=== PATIENT | female | born 1975 | race Caucasian/White ===

== ENCOUNTER 2017-02-03 22:06 | Emergency (ER) | payer OTHER ==
[~2017-02-03] VITALS: Ht 170.2 cm; Wt 92.8 kg
[2017-02-03 23:08] LABS: BASOPHIL % 0.6 % (0-2); PLATELET COUNT 325 x10^3mcL (130-400)
[2017-02-03 23:11] LABS: RED CELL DISTRIBUTION WIDTH 15.9 % (11.5-14.5)
[2017-02-03 23:19] LABS: CALCIUM 8.9 mg/dL (8.5-10.1); CARBON DIOXIDE 29.3 mmol/L (21-32); CHLORIDE SERUM 102 mmol/L (98-107); CREATININE SERUM 0.8 mg/dL (0.6-1.0); GFR1 > 60 mL/min; GLUCOSE SERUM 92 mg/dL (74-106); POTASSIUM SERUM 3.3 mmol/L (3.5-5.1); SODIUM SERUM 140 mmol/L (136-145)
[2017-02-03 23:23] LABS: ALKALINE PHOSPHATASE 79 U/L (46-116); ALT/SGPT 7 U/L (14-59); AST/SGOT 10 U/L (15-37); BILIRUBIN TOTAL 0.4 mg/dL (0.20-1.00); CHOLESTEROL 161 mg/dL (<200); CHOLESTEROL/HDL RATIO 4.4; HDL CHOLESTEROL 37 mg/dL (40-60); TOTAL PROTEIN, SERUM 7.6 g/dL (6.4-8.2); TRIGLYCERIDES 93 mg/dL (<150)
[2017-02-04 02:28] VITALS: BP 115/64
== END 2017-02-04 02:10 | disposition home or self-care (01) ==
LOC: ED 22:06
PROVIDERS: Specialist
DX: R53.1 Weakness (principal); M54.9 Dorsalgia, unspecified
CPT/HCPCS: 83880; J1885; J7030; Q0092

== ENCOUNTER 2017-03-28 11:59 | Emergency (ER) | payer OTHER ==
[2017-03-28 17:28] VITALS: BP 125/76
== END 2017-03-28 17:28 | disposition home or self-care (01) ==
LOC: ED 11:59
DX: S16.1XXA Strain of muscle, fascia and tendon at neck level, initial encounter (principal); Z79.899 Other long term (current) drug therapy; Z88.8 Allergy status to other drugs, medicaments and biological substances; V43.92XA Unspecified car occupant injured in collision with other type car in traffic accident, initial encounter; Y93.89 Activity, other specified; Y99.8 Other external cause status; Y92.89 Other specified places as the place of occurrence of the external cause
CPT/HCPCS: J1885

== ENCOUNTER 2017-05-25 02:26 | Emergency (ER) | payer OTHER ==
[~2017-05-25] VITALS: Ht 170.2 cm; Wt 92.5 kg
[2017-05-25 04:04] LABS: BASOPHIL % 0.6 % (0-2); PLATELET COUNT 321 x10^3mcL (130-400)
[2017-05-25 04:05] LABS: RED CELL DISTRIBUTION WIDTH 16.3 % (11.5-14.5)
[2017-05-25 04:07] LABS: CALCIUM 8.7 mg/dL (8.5-10.1); CARBON DIOXIDE 31.3 mmol/L (21-32); CHLORIDE SERUM 104 mmol/L (98-107); CREATININE SERUM 0.7 mg/dL (0.6-1.0); GFR1 > 60 mL/min; GLUCOSE SERUM 107 mg/dL (74-106); POTASSIUM SERUM 3.7 mmol/L (3.5-5.1); SODIUM SERUM 140 mmol/L (136-145)
[2017-05-25 07:08] VITALS: BP 128/98
== END 2017-05-25 07:05 | disposition home or self-care (01) ==
LOC: ED 02:26
PROVIDERS: Emergency Medicine
DX: R13.10 Dysphagia, unspecified (principal); R06.00 Dyspnea, unspecified; M79.7 Fibromyalgia; K21.9 Gastro-esophageal reflux disease without esophagitis; Z90.49 Acquired absence of other specified parts of digestive tract
CPT/HCPCS: J7030; Q9967

== ENCOUNTER 2017-09-06 11:12 | Emergency (ER) | payer OTHER ==
[~2017-09-06] VITALS: Ht 170.2 cm; Wt 86.6 kg
[2017-09-06 11:20] VITALS: Ht 170.2 cm; Wt 86.6 kg
[2017-09-06 12:19] LABS: UA SPECIFIC GRAVITY >=1.030 (1.005-1.035); microscopic required? YES; urine erythrocyte 2+ (NEGATIVE)
[2017-09-06 12:24] LABS: BASOPHIL % 0.6 % (0-2); PLATELET COUNT 315 x10^3mcL (130-400)
[2017-09-06 12:32] LABS: RED CELL DISTRIBUTION WIDTH 15.1 % (11.5-14.5)
[2017-09-06 12:56] LABS: T3 TOTAL 1.13 ng/mL
[2017-09-06 12:59] LABS: CALCIUM 8.7 mg/dL (8.5-10.1); CARBON DIOXIDE 27.7 mmol/L (21-32); CHLORIDE SERUM 104 mmol/L (98-107); CREATININE SERUM 0.7 mg/dL (0.6-1.0); GFR1 > 60 mL/min; GLUCOSE SERUM 96 mg/dL (74-106); POTASSIUM SERUM 3.6 mmol/L (3.5-5.1); SODIUM SERUM 140 mmol/L (136-145)
[2017-09-06 13:07] LABS: ALBUMIN 4.1 g/dL (3.4-5.0); ALKALINE PHOSPHATASE 76 U/L (46-116); ALT/SGPT 25 U/L (14-59); AST/SGOT 15 U/L (15-37); BILIRUBIN TOTAL 0.6 mg/dL (0.20-1.00); CHOLESTEROL 182 mg/dL (<200); MAGNESIUM 2.3 mg/dL (1.8-2.4); PHOSPHOROUS 2.3 mg/dL (2.5-4.9); TOTAL PROTEIN, SERUM 7.6 g/dL (6.4-8.2)
[2017-09-06 13:10] LABS: HDL CHOLESTEROL 33 mg/dL (40-60)
[2017-09-06 13:15] LABS: FREE T4 1.3 ng/dL (0.76-1.46); FREE THYROXINE INDEX 3.4 ug/dL (1.4-4.5); T4(THYROXINE) 9.5 ug/dL (4.7-13.3)
[2017-09-06 15:22] VITALS: BP 112/84
== END 2017-09-06 15:22 | disposition home or self-care (01) ==
LOC: ED 11:12
PROVIDERS: Emergency Medicine
DX: B34.9 Viral infection, unspecified (principal); D72.819 Decreased white blood cell count, unspecified; M79.7 Fibromyalgia; K21.9 Gastro-esophageal reflux disease without esophagitis; M19.90 Unspecified osteoarthritis, unspecified site; Z88.8 Allergy status to other drugs, medicaments and biological substances
CPT/HCPCS: 36415; 84439; 87804; Q0092

== ENCOUNTER 2017-09-07 01:25 | Emergency (ER) | payer OTHER ==
[~2017-09-07] VITALS: Ht 170.2 cm; Wt 87.1 kg
[2017-09-07 01:32] VITALS: Ht 170.2 cm; Wt 87.1 kg
[2017-09-07 06:33] VITALS: BP 136/83
== END 2017-09-07 05:50 | disposition home or self-care (01) ==
LOC: ED 01:25
DX: R13.10 Dysphagia, unspecified (principal); M19.90 Unspecified osteoarthritis, unspecified site; K21.9 Gastro-esophageal reflux disease without esophagitis; M79.7 Fibromyalgia; Z88.8 Allergy status to other drugs, medicaments and biological substances
CPT/HCPCS: 90715

== ENCOUNTER 2017-10-24 10:09 | Emergency (ER) | payer OTHER ==
[~2017-10-24] VITALS: Ht 170.2 cm; Wt 87.1 kg
[2017-10-24 10:24] VITALS: Ht 170.2 cm; Wt 87.1 kg
[2017-10-24 10:43] LABS: PLATELET COUNT 244 x10^3mcL (130-400)
[2017-10-24 10:46] LABS: RED CELL DISTRIBUTION WIDTH 14.9 % (11.5-14.5)
[2017-10-24 10:59] LABS: CALCIUM 8.7 mg/dL (8.5-10.1); CARBON DIOXIDE 27.3 mmol/L (21-32); CHLORIDE SERUM 105 mmol/L (98-107); CREATININE SERUM 0.8 mg/dL (0.6-1.0); GFR1 > 60 mL/min; GLUCOSE SERUM 116 mg/dL (74-106); POTASSIUM SERUM 3.9 mmol/L (3.5-5.1); SODIUM SERUM 142 mmol/L (136-145)
[2017-10-24 11:05] LABS: ALBUMIN 3.8 g/dL (3.4-5.0); ALKALINE PHOSPHATASE 64 U/L (46-116); ALT/SGPT 17 U/L (14-59); AST/SGOT 17 U/L (15-37); BILIRUBIN TOTAL 0.52 mg/dL (0.20-1.00); TOTAL PROTEIN, SERUM 7.1 g/dL (6.4-8.2)
[2017-10-24 12:29] VITALS: BP 102/68
== END 2017-10-24 12:29 | disposition home or self-care (01) ==
LOC: ED 10:09
PROVIDERS: Emergency Medicine
DX: K29.70 Gastritis, unspecified, without bleeding (principal); R07.89 Other chest pain; M54.2 Cervicalgia; M19.90 Unspecified osteoarthritis, unspecified site; K21.9 Gastro-esophageal reflux disease without esophagitis; M79.7 Fibromyalgia; Z88.8 Allergy status to other drugs, medicaments and biological substances
CPT/HCPCS: 36415; Q0092

== ENCOUNTER 2018-06-01 02:23 | Emergency (ER) | payer OTHER ==
[~2018-06-01] VITALS: Ht 170.2 cm; Wt 86.6 kg
[2018-06-01 02:28] VITALS: Ht 170.2 cm; Wt 86.6 kg
[2018-06-01 04:21] VITALS: BP 142/82
== END 2018-06-01 04:21 | disposition home or self-care (01) ==
LOC: ED 02:23
DX: S10.11XA Abrasion of throat, initial encounter (principal); M19.90 Unspecified osteoarthritis, unspecified site; K21.9 Gastro-esophageal reflux disease without esophagitis; M79.7 Fibromyalgia; X58.XXXA Exposure to other specified factors, initial encounter; Y93.89 Activity, other specified; Y92.511 Restaurant or cafe as the place of occurrence of the external cause; Y99.8 Other external cause status; Z90.49 Acquired absence of other specified parts of digestive tract; Z86.2 Personal history of diseases of the blood and blood-forming organs and certain disorders involving the immune mechanism; Z98.890 Other specified postprocedural states; Z88.6 Allergy status to analgesic agent
CPT/HCPCS: Q0162

== ENCOUNTER 2018-09-16 23:16 | Emergency (ER) | payer OTHER ==
[~2018-09-16] VITALS: Ht 170.2 cm; Wt 84.4 kg
[2018-09-16 23:29] VITALS: Ht 170.2 cm; Wt 84.4 kg
[2018-09-17 00:56] VITALS: BP 110/77
== END 2018-09-17 00:56 | disposition home or self-care (01) ==
LOC: ED 23:16
DX: G89.29 Other chronic pain (principal); M54.42 Lumbago with sciatica, left side; M19.90 Unspecified osteoarthritis, unspecified site; K21.9 Gastro-esophageal reflux disease without esophagitis; M79.7 Fibromyalgia; Z88.0 Allergy status to penicillin; Z88.5 Allergy status to narcotic agent
CPT/HCPCS: J1885

== ENCOUNTER 2019-02-11 20:29 | Emergency (ER) | payer OTHER ==
[~2019-02-11] VITALS: Ht 170.2 cm; Wt 88.9 kg
[2019-02-11 20:50] VITALS: Ht 170.2 cm; Wt 88.9 kg
[2019-02-11 21:48] VITALS: BP 122/77
== END 2019-02-11 21:48 | disposition home or self-care (01) ==
LOC: ED 20:29
DX: G43.909 Migraine, unspecified, not intractable, without status migrainosus (principal); M54.42 Lumbago with sciatica, left side; K21.9 Gastro-esophageal reflux disease without esophagitis; D25.9 Leiomyoma of uterus, unspecified; Z88.0 Allergy status to penicillin; Z88.8 Allergy status to other drugs, medicaments and biological substances; Z86.2 Personal history of diseases of the blood and blood-forming organs and certain disorders involving the immune mechanism